=== PATIENT | female | born 1955 | race Caucasian/White ===

== ENCOUNTER → 2021-07-24 | Outpatient (CLI) | payer MEDICARE, BC ==
[~2021-07-24] MED LIST: CETI5 PO; CRUTCH3 XX; IBUP400 PO
[2021-07-28 15:08] LABS: HPV 16 Negative (Negative); HPV 18 Negative (Negative); HPV OTHER HR TYPES Negative (Negative)
== END | disposition home or self-care (01) ==
LOC: LAB SHORT 16:18
PROVIDERS: Obstetrics & Gynecology
DX: Z01.419 Encounter for gynecological examination (general) (routine) without abnormal findings (principal)
CPT/HCPCS: 87624; G0123

== ENCOUNTER 2021-10-23 12:59 | Day surgery (SDC) | payer MEDICARE, BC ==
[~2021-10-23] VITALS: Ht 157.5 cm; Wt 77.2 kg
[~2021-10-23 12:59] MED LIST changes: +FAMO20 PO
[2021-10-23] MEDS ORDERED: CITALOPRAM HBR10 MG PO (13:44)
== END 2021-10-23 15:00 | disposition home or self-care (01) ==
LOC: ORSCSDS 12:59
PROVIDERS: Surgery
PROC: 0DBK8ZX Excision of Ascending Colon, Via Natural or Artificial Opening Endoscopic, Diagnostic (ICD-10-PCS; principal; 2021-10-23 14:15)
PROC: 0DBM8ZX Excision of Descending Colon, Via Natural or Artificial Opening Endoscopic, Diagnostic (ICD-10-PCS; principal; 2021-10-23 14:15)
DX: Z12.11 Encounter for screening for malignant neoplasm of colon (principal); D12.2 Benign neoplasm of ascending colon; D12.4 Benign neoplasm of descending colon; E78.5 Hyperlipidemia, unspecified; Z87.891 Personal history of nicotine dependence; E11.9 Type 2 diabetes mellitus without complications; I10 Essential (primary) hypertension; E66.9 Obesity, unspecified; Z68.32 Body mass index [BMI] 32.0-32.9, adult; Z79.899 Other long term (current) drug therapy
CPT/HCPCS: 88305; J0461; J2405; J2704; J7120

== ENCOUNTER 2023-02-18 11:04 | Day surgery (SDC) | payer MEDICARE, BC ==
[~2023-02-18] VITALS: Ht 157.5 cm; Wt 79.7 kg
[~2023-02-18 11:04] MED LIST changes: +CITALOPRAM HBR10 MG PO
[2023-02-18] MEDS ORDERED: REPATHA SU140 MG/1 M SQ (11:38)
--- NOTE | 2023-02-18 11:45 | NUR ---
02/18/23 1145 Thelma Cast TETRAALEXANDER: [id number] ABISAI: [id number]
[2023-02-18 12:43] VITALS: BP 127/68
== END 2023-02-18 12:57 | disposition home or self-care (01) ==
LOC: ORSCSDS 11:04
PROVIDERS: Ophthalmology
PROC: 08RJ3JZ Replacement of Right Lens with Synthetic Substitute, Percutaneous Approach (ICD-10-PCS; principal; 2023-02-18 12:30)
DX: H25.13 Age-related nuclear cataract, bilateral (principal); H52.4 Presbyopia; E78.5 Hyperlipidemia, unspecified; Z87.891 Personal history of nicotine dependence; Z79.899 Other long term (current) drug therapy; Z85.3 Personal history of malignant neoplasm of breast
CPT/HCPCS: J2250; J3010; J3301; J7040; V2632

== ENCOUNTER 2023-02-25 10:13 | Day surgery (SDC) | payer MEDICARE, BC ==
[~2023-02-25] VITALS: Ht 157.5 cm; Wt 79.5 kg
[~2023-02-25 10:13] MED LIST changes: +REPATHA SU140 MG/1 M SQ
--- NOTE | 2023-02-25 10:48 | NUR ---
02/25/23 1048 Betzy Hoover 1 DROP OF TETRACAINE ADMINISTERED TO THE L EYE AT 1040 AND PLEDGET PLACED IN LEFT AT 1041 [facility]
[2023-02-25 11:33] VITALS: BP 139/81
--- NOTE | 2023-02-25 11:50 | NUR ---
02/25/23 1150 Geovany Rodriguez IV REMOVED INTACT. SITE WNL.
== END 2023-02-25 11:48 | disposition home or self-care (01) ==
LOC: ORSCSDS 10:13
PROVIDERS: Ophthalmology
PROC: 08RK3JZ Replacement of Left Lens with Synthetic Substitute, Percutaneous Approach (ICD-10-PCS; principal; 2023-02-25 11:30)
DX: H25.12 Age-related nuclear cataract, left eye (principal); Z96.1 Presence of intraocular lens; H52.4 Presbyopia; E78.5 Hyperlipidemia, unspecified; E66.9 Obesity, unspecified; Z68.32 Body mass index [BMI] 32.0-32.9, adult; Z85.3 Personal history of malignant neoplasm of breast; Z87.891 Personal history of nicotine dependence; Z79.899 Other long term (current) drug therapy
CPT/HCPCS: J2250; J3010; J3301; J7040; V2632

== ENCOUNTER 2024-02-09 13:28 | Emergency (ER) | payer OTHER, MEDICARE, BC ==
[~2024-02-09] VITALS: Ht 170.2 cm; Wt 81.7 kg
[2024-02-09 13:52] VITALS: BP 196/94
[2024-02-09] MEDS ORDERED: Ketorolac Tromethamine 30mg Vial IV ONE (14:20)
[2024-02-09] MEDS ORDERED: Diphth,Pertuss(Acell),Tet Vac 0.5 ML VIAL IM ONE (14:20)
[2024-02-09] MEDS ORDERED: HYDR1TAB94 PO (14:38)
[2024-02-09] MEDS ORDERED: ONDA4ODT MM (14:38)
== END 2024-02-09 14:51 | disposition home or self-care (01) ==
LOC: ER 13:28
DX: S20.211A Contusion of right front wall of thorax, initial encounter (principal); S50.812A Abrasion of left forearm, initial encounter; M54.50 Low back pain, unspecified; V89.2XXA Person injured in unspecified motor-vehicle accident, traffic, initial encounter; Z87.891 Personal history of nicotine dependence; Z79.899 Other long term (current) drug therapy; Z88.2 Allergy status to sulfonamides; Z88.8 Allergy status to other drugs, medicaments and biological substances
CPT/HCPCS: 90471; 90715; 96374; 99284-25; J1885